=== PATIENT | male | born 1975 | race Caucasian/White ===

== ENCOUNTER 2018-08-28 18:55 | Emergency (ER) | payer OTHER ==
[2018-08-28] MEDS ORDERED: PROMETHAZINE HCL 25 MG/ML INJ IVP ONE (19:25)
[2018-08-28] MEDS ORDERED: NS 1,000 ML IV ONE (19:25)
--- NOTE | 2018-08-28 19:31 | EDPHY ---
H & P Time Seen by Provider: 08/28/18 19:16 HPI/ROS: CHIEF COMPLAINT: Headache body aches and diarrhea HISTORY OF PRESENT ILLNESS: Patient took Lexapro for the 1st time 4:00 a.m. Prior to his symptoms started. Started about midnight today, just less than 20 hr ago. 3 episodes of diarrhea, feels achy and hot and cold with a runny nose and a mild headache. Symptoms moderate, he is trying to drink fluids but still has a lot of nausea. Body aches are diffuse. Diarrhea is watery without melena or red blood. No abdominal pain or vomiting. REVIEW OF SYSTEMS: Eye: no change in vision ENT: no sore throat or earache Cardiac: no chest pain or syncope Pulmonary: no cough or SOB Abdomen: HPI Musculoskeletal: Chronic neck pain unchanged, diffuse myalgias present Skin: no rash Neuro: HPI, no vertigo Constitutional: Fever and chills : no urinary symptoms A comprehensive 10 point review of systems is otherwise negative aside from elements mentioned in the history of present illness. PAST MEDICAL HISTORY: Includes vertebral artery dissection with stenting in 2008, chronic pain, anxiety and depression Social history: No drugs, nonsmoker. No recent travel to foreign country. General Appearance: Alert and conversant, cooperative. Eyes: No scleral icterus. ENT, Mouth: Slightly dry mucous membranes. Respiratory: Normal respiratory effort, breath sounds equal, lungs are clear to auscultation. Cardiovascular: Regular rate and rhythm. Not tachycardic. Gastrointestinal: Abdomen is soft and non tender. No rebound or guarding. Neurological: Alert, face symmetric, normal motor and sensory in extremities. Speech fluent, not confused, no clonus. Skin: Warm and dry, no rashes. Musculoskeletal: No neck stiffness. Psychiatric: Not agitated. Emergency Department course/MDM: I think that serotonin syndrome is unlikely. More likely would be infectious diarrhea with dehydration, or flu-like viral syndrome, or dehydration. IV fluids, Phenergan 12.5 mg IV, labs to include electrolytes and CPK. 2002: Normal CBC chemistry and CPK. Less nausea but still has a headache. Last ibuprofen was 1:00 p.m.. 15 mg Toradol IV, hydrocodone 1 p.o.; if symptoms adequately controlled with discharge with take-home pack and clinical follow-up with his PCP tomorrow. He has the name at home but can't remember it here. 2044: Feels better, symptoms controlled, well enough to go home which I think is reasonable. Smoking Status: Former smoker Constitutional: Initial Vital Signs Temperature (C) 37.1 C 08/28/18 18:57 Heart Rate 69 08/28/18 18:57 Respiratory Rate 18 08/28/18 18:57 Blood Pressure 114/72 08/28/18 18:57 O2 Sat (%) 98 08/28/18 18:57 O2 Delivery Mode Room Air Allergies/Adverse Reactions: No Known Allergies Allergy (Unverified 08/28/18 19:01) Home Medications: Medication Instructions Recorded Aspirin [Aspirin 325 mg (*)] 325 mg PO DAILY 08/28/18 Escitalopram Oxalate [Lexapro] 10 mg PO 08/28/18 traMADol [Ultram 50 mg (*)] 50 mg PO Q4 08/28/18 Medical Decision Making - Data Points Laboratory Results: Laboratory Results 08/28/18 19:31 08/28/18 19:31 08/28/18 08/28/18 19:31 19:31 WBC 7.56 10^3/uL 10^3/uL (3.80-9.50) RBC 4.52 10^6/uL 10^6/uL (4.40-6.38) Hgb 14.3 g/dL g/dL (13.7-17.5) Hct 41.0 % % (40.0-51.0) MCV 90.7 fL fL (81.5-99.8) MCH 31.6 pg pg (27.9-34.1) MCHC 34.9 g/dL g/dL (32.4-36.7) RDW 11.9 % % (11.5-15.2) Plt Count 230 10^3/uL 10^3/uL (150-400) MPV 10.2 fL fL (8.7-11.7) Neut % (Auto) 81.5 % H % (39.3-74.2) Lymph % (Auto) 7.4 % L % (15.0-45.0) [place] % (Auto) 9.5 % % (4.5-13.0) Eos % (Auto) 1.1 % % (0.6-7.6) Baso % (Auto) 0.4 % % (0.3-1.7) Nucleat RBC Rel Count 0.0 % % (0.0-0.2) Absolute Neuts (auto) 6.16 10^3/uL 10^3/uL (1.70-6.50) Absolute Lymphs (auto) 0.56 10^3/uL L 10^3/uL (1.00-3.00) Absolute Monos (auto) 0.72 10^3/uL 10^3/uL (0.30-0.80) Absolute Eos (auto) 0.08 10^3/uL 10^3/uL (0.03-0.40) Absolute Basos (auto) 0.03 10^3/uL 10^3/uL (0.02-0.10) Absolute Nucleated RBC 0.00 10^3/uL 10^3/uL (0-0.01) Immature Gran % 0.1 % % (0.0-1.1) Immature Gran # 0.01 10^3/uL 10^3/uL (0.00-0.10) RBC/WBC/PLT Morphology TNP Platelet Estimate TNP Sodium 137 mEq/L mEq/L (135-145) Potassium 3.9 mEq/L mEq/L (3.3-5.0) Chloride 104 mEq/L mEq/L (97-110) Carbon Dioxide 26 mEq/l mEq/l (22-31) Anion Gap 7 mEq/L mEq/L (6-14) BUN 12 mg/dL mg/dL (7-23) Creatinine 0.7 mg/dL mg/dL (0.7-1.3) Estimated GFR > 60 Glucose 83 mg/dL mg/dL (70-100) Calcium 9.0 mg/dL mg/dL (8.5-10.4) Creatine Kinase 145 IU/L IU/L (0-224) Medications Given: Discontinued Medications Hydrocodone Bitart/Acetaminophen ([place] 5/325) 1 tab PO EDNOW ONE Stop: 08/28/18 20:07 Last Admin: 08/28/18 20:10 Dose: 1 tab Hydrocodone Bitart/Acetaminophen ([place] 5/325mg Prepack#6) 1 btl TAKEHOME EDNOW ONE Stop: 08/28/18 20:08 Last Admin: 08/28/18 20:11 Dose: 1 btl Sodium Chloride (Ns) 1,000 mls @ 0 mls/hr IV EDNOW ONE; Wide Open PRN Reason: Protocol Stop: 08/28/18 19:26 Last Admin: 08/28/18 19:37 Dose: 1,000 mls Ketorolac Tromethamine (Toradol) 15 mg IVP EDNOW ONE Stop: 08/28/18 20:07 Last Admin: 08/28/18 20:09 Dose: 15 mg Promethazine HCl (Phenergan) 12.5 mg IVP EDNOW ONE Stop: 08/28/18 19:26 Last Admin: 08/28/18 19:37 Dose: 12.5 mg Departure - Departure Disposition: Home, Routine, Self-Care Clinical Impression: Myalgia, Viral syndrome Diarrhea Qualifiers: Diarrhea type: unspecified type Qualified Code(s): R19.7 - Diarrhea, unspecified Condition: Good Instructions: Hydrocodone/Acetaminophen (By mouth), Promethazine (By mouth), Acute Diarrhea (ED) Referrals: NONE *PRIMARY CARE P,. [Primary Care Provider] - As per Instructions (followup with your PCP tomorrow as scheduled.) Panfilo Pimentel MD [[facility] [place] Primary Care Provider] - As per Instructions
[2018-08-28 19:44] LABS: PLATELET COUNT 230 10^3/uL (150-400)
[2018-08-28 19:58] LABS: CREATINE KINASE 145 IU/L (0-224)
[2018-08-28] MEDS ORDERED: HYDROCODONE/APAP 5/325 TAB PO ONE (20:06)
[2018-08-28] MEDS ORDERED: KETOROLAC 30 MG/1 ML SDV IVP ONE (20:06)
[2018-08-28] MEDS ORDERED: HYDROCOD/APAP 5/325 PREPACK#6 BTL TAKEHOME ONE (20:07)
[2018-08-28] MEDS ORDERED: PROMETHAZINE 25 MG PREPACK #4 BTL TAKEHOME ONE (20:07)
[2018-08-28 20:51] VITALS: BP 120/72
== END 2018-08-28 20:50 | disposition home or self-care (01) ==
DX: B34.9 Viral infection, unspecified (principal); E86.9 Volume depletion, unspecified; M79.10 Myalgia, unspecified site; R19.7 Diarrhea, unspecified; M54.2 Cervicalgia; G89.29 Other chronic pain; Z87.891 Personal history of nicotine dependence
CPT/HCPCS: 96374; J1885; J2550